=== PATIENT | female | born 1975 | race Caucasian/White ===

== ENCOUNTER 2017-08-15 18:25 | Emergency (ER) | payer OTHER ==
[~2017-08-15] VITALS: Ht 157.5 cm; Wt 79.4 kg
[2017-08-15 18:34] VITALS: BP 123/66
[2017-08-15] MEDS ORDERED: KETOROLAC 30 MG/ML VIAL IM ONE (20:20)
[2017-08-15 20:39] VITALS: BP 123/66
== END 2017-08-15 20:40 | disposition home or self-care (01) ==
LOC: MED 18:25
DX: S83.92XA Sprain of unspecified site of left knee, initial encounter (principal); X58.XXXA Exposure to other specified factors, initial encounter; Y93.44 Activity, trampolining; Y92.89 Other specified places as the place of occurrence of the external cause; Y99.8 Other external cause status
CPT/HCPCS: 29505; 73562; 96372; 99284; J1885

== ENCOUNTER 2018-04-22 11:50 | Emergency (ER) | payer OTHER ==
[~2018-04-22] VITALS: Ht 160 cm; Wt 73.5 kg
[2018-04-22 12:06] VITALS: BP 124/56
--- NOTE | 2018-04-22 14:25 | NUR ---
PATIENT AMBULATED TO ER BED 3.
--- NOTE | 2018-04-22 14:27 | NUR ---
PT IS A 42 Y/O FEMALE WHO PRESENTS TO THE ED C/O DIZZINESS SINCE LAST NIGHT. PT STATES THAT SHE HAS NUMBNESS AND TINGLING IN THE HANDS. PT DENIES PAIN AT THIS TIME. PT DENIES CP, SOB, REPORTS NAUSEA DENIES VOMITING/DIARRHEA. PT AWAKE AND ALERT, RR EVEN/UNLABORED. PT REPOSITIONED FOR COMFORT, BED IN LOWEST POSITION. ER MD DR. CANO NOTIFIED. WILL CONTINUE TO MONITOR. PMH: NONE RX: NONE
[2018-04-22 15:28] VITALS: BP 120/60
--- NOTE | 2018-04-22 15:28 | NUR ---
Patient discharged with v/s stable. Written and verbal after care instructions given and explained. Patient alert, oriented and verbalized understanding of instructions. Ambulatory with steady gait. All questions addressed prior to discharge. ID band removed. Patient advised to follow up with PMD. Rx of ZOFRAN ODT ,AND MECLIZINE 25MG given. Patient educated on indication of medication including possible reaction and side effects. Opportunity to ask questions provided and answered.
== END 2018-04-22 15:28 | disposition home or self-care (01) ==
LOC: MED 11:50
DX: R42 Dizziness and giddiness (principal); H93.19 Tinnitus, unspecified ear; R20.2 Paresthesia of skin; R51 Headache; M54.6 Pain in thoracic spine; R11.0 Nausea
CPT/HCPCS: 99283

== ENCOUNTER 2019-08-25 09:37 | Emergency (ER) | payer OTHER ==
[~2019-08-25] VITALS: Ht 162.6 cm; Wt 72.6 kg
[2019-08-25 09:44] VITALS: BP 130/71
--- NOTE | 2019-08-25 09:49 | NUR ---
PT AMBULATED TO ER BED 12
--- NOTE | 2019-08-25 09:58 | NUR ---
PT C/O RT HAND NUMBNESS X 3 MONTHS, LT FACIAL NUMBNESS X 2 WKS, AND DIZZINESS YESTERDAY. PT IS ABLE TO RAISE HER EYEBROW BILATERAL, MILD RT-SIDED FACIAL DROOP NOTICED, UPPER EXTRIMETIES STRENGTH NORMAL AND EQUAL, PUPILS PERRLA. DENIES N/V/D; SKIN IS PINK/WARM/DRY; AAOX4 WITH EVEN AND STEADY GAIT; LUNGS CLEAR BL; HR EVEN AND REGULAR; PT DENIES ANY FEVER, CP, SOB, OR COUGH AT THIS TIME; PATIENT STATES PAIN OF 0/10 AT THIS TIME; VSS; PATIENT POSITIONED FOR COMFORT; HOB ELEVATED; BEDRAILS UP X1; BED DOWN. ER MD MADE AWARE OF PT STATUS.
[2019-08-25 11:44] VITALS: BP 122/68
--- NOTE | 2019-08-25 11:44 | NUR ---
Patient discharged with v/s stable. Written and verbal after care instructions given and explained. Patient alert, oriented and verbalized understanding of instructions. Ambulatory with steady gait. All questions addressed prior to discharge. ID band removed. Patient advised to follow up with PMD. Rx of Meclizine and Ibuprofen given. Patient educated on indication of medication including possible reaction and side effects. Opportunity to ask questions provided and answered.
== END 2019-08-25 11:44 | disposition home or self-care (01) ==
LOC: MED 09:37
DX: M54.10 Radiculopathy, site unspecified (principal); R20.2 Paresthesia of skin; Z90.49 Acquired absence of other specified parts of digestive tract; Z90.711 Acquired absence of uterus with remaining cervical stump; Z41.1 Encounter for cosmetic surgery
CPT/HCPCS: 93971; 99284; Q0092